=== PATIENT | female | born 1950 | race Two or more races ===

== ENCOUNTER 2023-01-13 15:09 | Emergency (ER) | payer OTHER ==
[~2023-01-13] VITALS: Ht 162.6 cm; Wt 59.0 kg
[2023-01-13] MEDS ORDERED: PLAVIX75 MG PO (15:26)
[2023-01-13] MEDS ORDERED: PRAVASTATIN SOD40 MG PO (15:26)
[2023-01-13] MEDS ORDERED: IRBESARTAN150 MG PO (15:27)
[2023-01-13] MEDS ORDERED: ACID REDUCER20 M1 PO (15:27)
[2023-01-13] MEDS ORDERED: ADULT ASPIRIN81 MG PO (15:27)
[2023-01-13] MEDS ORDERED: TENORMIN25 MG PO (15:28)
== END 2023-01-13 20:37 | disposition home or self-care (01) ==
LOC: ER 15:09
DX: R55 Syncope and collapse (principal); I10 Essential (primary) hypertension; Z86.73 Personal history of transient ischemic attack (TIA), and cerebral infarction without residual deficits